=== PATIENT | female | born 2000 | race Caucasian/White ===

== ENCOUNTER 2022-02-08 15:00 | Outpatient (CLI) | payer OTHER, SELFPAY ==
--- NOTE | 2022-02-08 15:00 | CRLHL7_ITS ---
For Patients: As a result of the Cures Act, medical imaging exams and procedure reports are released immediately into your electronic medical record. You may view this report before your referring provider. If you have questions, please contact your health care provider. INDICATION: Dating and viability COMPARISON: none TECHNIQUE: Real time jasmine scale imaging of the fetus was performed. FINDINGS: Sonographic imaging demonstrates a single living intrauterine gestation. Fetus demonstrates a regular cardiac rate of 145 beats per minute. The placenta lies right anterior. Amniotic fluid volume appears normal. The composite ultrasound gestational age is calculated at 15 weeks 3 days with an estimated sonographic due date of 07/30/2022. The estimated weight is 115 grams which lies at the 84th %. The following biometric measurements were obtained: Biparietal diameter: 3.2 cm/16 weeks 0 days greater than 97th% Head circumference: 11.8 cm/15 weeks 6 days 94th% Abdominal circumference: 9.3 cm/15 weeks 3 days 86th% Femur length: 1.5 cm/14 weeks 4 days 50th% The HC/AC ratio measures: 1.27 range (1.05-1.37) IMPRESSION: Single living intrauterine with sonographic gestational age 15 weeks 3 days and sonographic due date of 07/30/2022. Dictated by Ac Brown MD @ 02/09/2022 8:41:19 AM (Electronically Signed)
== END 2022-02-08 15:01 | disposition home or self-care (01) ==
LOC: US 15:01
PROVIDERS: PCP Advanced Practice Midwife; Visit Provider Advanced Practice Midwife
DX: Z34.92 Encounter for supervision of normal pregnancy, unspecified, second trimester (principal); Z3A.16 16 weeks gestation of pregnancy
CPT/HCPCS: 76815; 80306; 86592; 86703; 86762; 86787; 86803; 86850; 86900; 86901; 87086; 87340; 87491; 87591

== ENCOUNTER 2022-03-05 13:24 | Outpatient (CLI) | payer OTHER, SELFPAY ==
[2022-03-08 08:24] LABS: Dating Other; Family Hx Neural Tube Defect No; Insulin Req Maternal Diabetes No; Maternal Age At Delivery 24.2 yr; Maternal Race Nonblack; Maternal Screen Interpretation Screen Neg; MoM for AFP 0.99; Number of Fetuses Singleton; Patient's AFP 55 ng/mL; Smoking No
== END 2022-03-05 13:25 | disposition home or self-care (01) ==
LOC: NFLDREF 13:32
PROVIDERS: PCP Advanced Practice Midwife; Visit Provider Advanced Practice Midwife
DX: Z34.82 Encounter for supervision of other normal pregnancy, second trimester (principal); Z3A.18 18 weeks gestation of pregnancy
CPT/HCPCS: 81511

== ENCOUNTER 2022-03-20 08:11 | Outpatient (CLI) | payer OTHER, SELFPAY ==
--- NOTE | 2022-03-20 08:15 | CRLHL7_ITS ---
For Patients: As a result of the Century Cures Act, medical imaging exams and procedure reports are released immediately into your electronic medical record. You may view this report before your referring provider. If you have questions, please contact your health care provider. INDICATION: Evaluate anatomy. COMPARISON: 02/08/2022 TECHNIQUE: Real time jasmine scale imaging of the fetus was performed as well as color Doppler analysis of the umbilical vessels. FINDINGS: Sonographic imaging demonstrates a single living intrauterine gestation. Fetus demonstrates a regular cardiac rate of 134 beats per minute. Fetus has a whitney breech position. The placenta lies anteriorly without evidence of placenta previa. The edge of the placenta is located 8.7 cm from the internal cervical os. Amniotic fluid volume appears normal. Single deepest vertical pocket: 6.7 cm. The cervix is closed and measures 3.3 cm in length. The composite ultrasound gestational age is calculated at 21 weeks 2 days with an estimated sonographic due date of 07/29/2022. The estimated weight is 400 grams which lies at the 92nd %. The following biometric measurements were obtained: Biparietal diameter: 5.1 cm/21 weeks 3 days 92nd% Head circumference: 18.9 cm/21 weeks 1 day 85th% Abdominal circumference: 16.8 cm/21 week 6 days 90th% Femur length: 3.3 cm/20 weeks 1 44th% The HC/AC ratio measures: 1.12 range (1.06-1.24) On anatomic survey, there is a normal appearance of the cerebral ventricles, cavum septi pellucidi, cisterna magna and cerebellum. The nose, lips, and facial profile appear normal. The cervical, thoracic and lumbar spine are well visualized and appear normal. 2 millimeter echogenic focus within the left ventricle. The left and right ventricular outflow tracts appear normal. The diaphragm and stomach appear normal. The kidneys and bladder also appear normal. There is a normal three-vessel cord and an eccentric cord insertion site. The four extremities appear normal. IMPRESSION: 2 millimeter echogenic focus within the left ventricle. The remainder of the anatomic survey is normal. A level 2 ultrasound is recommended. Sonographic gestational age 21 weeks 2 days and sonographic due date of 07/29/2022. Sonographic age is 8 days ahead of the clinical age. Estimated weight 92nd percentile. Abdominal circumference 90th percentile. Dictated by Ac Brown MD @ 03/20/2022 11:10:18 AM (Electronically Signed)
== END 2022-03-20 08:12 | disposition home or self-care (01) ==
LOC: US 08:12
PROVIDERS: PCP Advanced Practice Midwife; Visit Provider Advanced Practice Midwife
DX: Z34.82 Encounter for supervision of other normal pregnancy, second trimester (principal); Z3A.21 21 weeks gestation of pregnancy
CPT/HCPCS: 76805

== ENCOUNTER 2022-04-10 14:27 | Outpatient (CLI) | payer OTHER, SELFPAY | END 2022-04-10 14:28 | disposition home or self-care (01) | PROVIDERS: Visit Provider Pediatrics Neonatal-Perinatal Medicine | DX: Z34.92 Encounter for supervision of normal pregnancy, unspecified, second trimester (principal); Z3A.23 23 weeks gestation of pregnancy | CPT/HCPCS: 76816 ==

== ENCOUNTER 2022-05-10 13:30 | Outpatient (CLI) | payer OTHER, SELFPAY | END 2022-05-10 13:31 | disposition home or self-care (01) | LOC: NFLDREF 13:31 | PROVIDERS: Visit Provider Advanced Practice Midwife | DX: Z34.92 Encounter for supervision of normal pregnancy, unspecified, second trimester (principal); Z3A.27 27 weeks gestation of pregnancy | CPT/HCPCS: 80306; 86592 ==

== ENCOUNTER 2022-06-02 08:54 | Inpatient (IN) | payer OTHER, SELFPAY ==
[2022-06-02] VITALS (8 sets, daily range): BP systolic 105–119; BP diastolic 53–69; PULSE 52–79; RESP 18; TEMP 36.5
[2022-06-02] MEDS: OXYTOCIN 10 UNIT/ML INJ IM (08:45)
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
--- NOTE | 2022-06-02 09:47 | W.PM.VAGDE_ITS ---
OB Procedure Vag Delivery Mother Details Mother Details: The patient is a 22 year-old, 3, now Para [id number], admitted on 06/02/22 at 30.5 Days gestation. Pt states ctx started last night, assumed they were lynn renea ctx. Increased this AM when she woke up around 0500. A friend encouraged her to try the tub, still assuming they were lynn renea. Ctx continued to increase in intensity, and they decided to come in for evaluation. CNM called to triage to evaluate. SROM, large amount of clear fluid occurred on her drive, likely around 0815. FHTs attempted by RN, Pt noted to be +3 station, imminent delivery. Decision made to proceed to L & D room for access to warmer for baby. Peds called to bedside. Weeks Gestation: 30.5 Admission Date: 06/02/22 Additional Details Amniotic Membrane Status: SROM Amniotic Membrane Rupture Date: 06/02/22 Amniotic Membrane Rupture Time: 08:15 Amniotic Membrane Fluid Description: Clear Waterbirth: No Pitcoin: No Intrapartal Events: Distress and Precipitous Labor <3 Hrs Labor Onset: 05:00 Complete: 08:29 Pushin:32 Heart: heart tones during second stage were in the 60s Delivery Details Delivery Date: 06/02/22 Delivery Time: 08:40 Route of delivery: other (Breech delivery) Infant Gender: Male Viability: Alive; Heart Rate Present Position at Delivery: Breech Delivery Details: Pt transferred from triage to L & D room. Strong urge to push w/ ctx, and encouraged to do so. Small crown noted with first push. FHTs noted to be in the 60-80s. Pushing with next ctx, larger crown noted. FHTs noted to be in the 60s. Decision made to continue to push through w/o ctx. Pt pushing. Baby noted to be breech at this time, sacrum anterior and right. Delivery of body occurred, sacrum anterior/right, restituted to sacrum anterior. Pt instructed to continue to push, with no delivery of the head noted with gentle traction. Limited maternal effort and no ctx noted at that time. Reached up and pulled length of cord down easily. Right arm grasped at elbow and swept down for delivery, which occurred easily. Left arm grasped at elbow and swept down for delivery which occurred easily. Still unable to delivery head with gentle traction. Pt instructed to continue to push. Hand slid into vagina and through cervix and top of head encouraged to flex forward. Body allowed to be lowered to also encourage head to flex. Delivery of head occurred with gentle traction and limited maternal effort. Time of head to body estimated to be about 90 seconds. VACCINES SOLUTIONS SPECIALIST at bedside for delivery. At 0840 a viable?male delivered in breech presentation over intact perineum via spontaneous vaginal?delivery. ? placed on maternal abdomen, and cord clamped and cut immediately and passed to nurse, to prewarmed open warmer with V[employer] SOLUT[employer] SPECIALIST at bedside. Placenta delivered spontaneously and complete at 0848 with a 3 vessel cord. Placenta to be sent for further evaluation. Mother was stable after delivery. being stabilized and to be transferred to NICU. Lacerations:? No lacerations noted Blood loss: 25 mL. Blood loss measurement type: QBL? Sponge and needles counts are correct. 1 Minute Interval Total Score: 2 5 Minute Interval Total Score: 7 Additional Details Shoulder Dystocia: No Placenta Delivery Time: 08:48 Placental Delivery Description: Spontaneous Procedure Done: Global Blood Loss: 25 Laceration: None Blood Loss Measurement Type: QBL Bakri Used: No Sponge/Need Count Correct: Yes Cord Vessel Description: 3 Vessels Event Summary Disposition: floor (Will likely want early discharge to be with baby. )
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
[2022-06-02 13:43] LABS: Amphetamine Screen Urine Negative (Negative); Barbiturate Screen Urine Negative (Negative); Benzodiazepines Screen Urine Negative (Negative); Cannabinoid Screen Urine Negative (Negative); Cocaine Screen Urine Negative (Negative); Methadone Screen Urine Negative (Negative); Methamphetamines Screen Urine Negative (Negative); Opiate Screen Urine Negative (Negative); Oxycodone Screen Urine Negative (Negative); Phencyclidine Screen Urine Negative (Negative); Tricyclic Antidepressant Urine Negative (Negative)
== END 2022-06-02 13:45 | disposition home or self-care (01) | DRG 807 ==
LOC: OB OUT 08:54 → OB 08:54
PROVIDERS: Admitting Provider Advanced Practice Midwife; PCP Advanced Practice Midwife; Visit Provider Advanced Practice Midwife
DX: O42.013 Preterm premature rupture of membranes, onset of labor within 24 hours of rupture, third trimester (principal); Z37.0 Single live birth; Z3A.30 30 weeks gestation of pregnancy; O64.1XX0 Obstructed labor due to breech presentation, not applicable or unspecified; F32.A Depression, unspecified; F41.9 Anxiety disorder, unspecified; O99.344 Other mental disorders complicating childbirth; O9A.32 Physical abuse complicating childbirth
CPT/HCPCS: 80306; 87635; 88307; J2590